=== PATIENT | female | born 1995 | race Caucasian/White ===

== ENCOUNTER 2017-09-17 22:59 | Inpatient (IN) | payer OTHER ==
[2017-09-18] MEDS: LR 1,000 ML IV ×4 (00:41→21:30)
[2017-09-18] MEDS: DIBUCAINE 1% OINTMENT 30GM TOP ×3 (00:41→21:00)
[2017-09-18] MEDS: ACETAMINOPHEN 500 MG TAB PO (03:20)
[2017-09-18] MEDS ORDERED: LR 1,000 ML IV ×2 (09:12)
[2017-09-18 10:25] LABS: HEMOGLOBIN 10.9 g/dl (12.0-15.5); MEAN CORPUSCULAR HEMOGLOBIN 29.5 pg (27.0-33.0); MEAN CORPUSCULAR HGB CONC 34.1 g/dl (32.0-36.5); MEAN CORPUSCULAR VOLUME 86.7 fl (80.0-96.0); PLATELET COUNT, AUTOMATED 155 10^3/uL (150-450); RED BLOOD COUNT 3.69 10^6/uL (4.00-5.40); RED CELL DISTRIBUTION WIDTH 12.6 % (11.5-14.5); WHITE BLOOD COUNT 10.5 10^3/uL (4.0-10.0)
[2017-09-18] MEDS: OXYTOCIN DRIP 30 UNITS in APPROPRIATE DILUENT 1 EA IV (10:46)
[2017-09-18 11:38] LABS: AMPHETAMINES URINE REFLEX NEGATIVE (NEGATIVE); BARBITURATES URINE REFLEX NEGATIVE (NEGATIVE); BENZODIAZEPINES URINE REFLEX NEGATIVE (NEGATIVE); CANNABINOIDS URINE REFLEX NEGATIVE (NEGATIVE); COCAINE METABOLITE URINE REFLE NEGATIVE (NEGATIVE); METHADONE URINE REFLEX NEGATIVE (NEGATIVE); PHENCYCLIDINE URINE REFLEX NEGATIVE (NEGATIVE)
[2017-09-18 11:47] LABS: OPIATES URINE REFLEX PENDING CONFIRMATION (NEGATIVE)
[2017-09-18] MEDS: LACTATED RINGER'S 1000 ML IV (18:09)
[2017-09-18] MEDS ORDERED: BICITRA 30ML SOLN UDC As Ordered (19:10)
[2017-09-18] MEDS ORDERED: ceFAZolin 2 GM/D5W 50 ML IV BAG (J0690 PER 500MG) As Ordered (19:10)
[2017-09-18] MEDS: BICITRA 30ML SOLN UDC PO (19:15)
[2017-09-18] MEDS ORDERED: MORPHINE PRES-FREE INJ 10 MG/10 ML VIAL (J2274) As Ordered (19:43)
[2017-09-18] MEDS ORDERED: ONDANSETRON 4MG/2ML VIAL (J2405) IV ×3 (20:00→21:30)
[2017-09-18] MEDS ORDERED: NALBUPHINE HCL 10 MG/ML AMP (J2300) IV (20:00)
[2017-09-18] MEDS ORDERED: NALOXONE INJ 0.4 MG/1 ML VIAL (J2310) IV ×2 (20:00)
[2017-09-18] MEDS ORDERED: OXYTOCIN INJ 10 UNITS/ML VIAL (J2590) As Ordered ×4 (20:16→21:05)
[2017-09-18] MEDS ORDERED: ONDANSETRON 4MG/2ML VIAL (J2405) As Ordered (20:25)
[2017-09-18] MEDS ORDERED: ePHEDrine SULFATE 25 MG/5 ML(5MG/ML) SYRINGE As Ordered (20:35)
[2017-09-18] MEDS ORDERED: fentaNYL 100 MCG/2 ML INJECTION (J3010) As Ordered ×2 (20:37→21:55)
[2017-09-18 20:50] LABS: CORD GAS ABE A -0.9; CORD GAS ABE V -0.7; CORD GAS HCO3 V 23.6 MEQ/L; CORD GAS O2 SAT A 26.9 %; CORD GAS O2 SAT V 60.5 %; CORD GAS PCO2 A 45.8 mmHg; CORD GAS PCO2 V 38.2 mmHg; CORD GAS PH A 7.355 UNITS; CORD GAS PH V 7.408 UNITS; CORD GAS PO2 A 15.6 mmHg; CORD GAS PO2 V 25.6 mmHg; CORD GAS SBC A 21.8 MEQ/L; CORD GAS SBC V 22.8 MEQ/L; CORD GAS TCO2 A 26.4 MEQ/L; CORD GAS TCO2 V 24.7 MEQ/L
[2017-09-18] MEDS ORDERED: MOM 30ML SUSPENSION UDC PO (21:15)
[2017-09-18] MEDS ORDERED: METHYLERGONOVINE MALEATE 0.2 MG TAB PO (21:15)
[2017-09-18] MEDS ORDERED: MEASLES,MUMPS,RUBELLA VACCINE INJ (MMR-II) (90707) SC (21:15)
[2017-09-18] MEDS ORDERED: KETOROLAC 30 MG/ML VIAL (J1885) As Ordered (21:27)
[2017-09-18] MEDS ORDERED: fentaNYL 100 MCG/2 ML INJECTION (J3010) IV (21:30)
[2017-09-18] MEDS ORDERED: MEPERIDINE INJ 25 MG/ML VIAL (J2175) IV (21:30)
[2017-09-18] MEDS ORDERED: PERCOCET 5MG/325MG TAB PO (21:30)
[2017-09-18] MEDS: KETOROLAC 30 MG/ML VIAL (J1885) IV (21:39)
[2017-09-18] MEDS: METOCLOPRAMIDE INJ 10MG/2ML VIAL (J2765) IV (23:39)
[2017-09-19] MEDS: PROMETHAZINE 25 MG TAB PO (02:42)
[2017-09-19] MEDS: KETOROLAC 30 MG/ML VIAL (J1885) IV ×3 (03:45→15:39)
[2017-09-19] MEDS: LR 1,000 ML IV ×3 (05:14→21:14)
[2017-09-19 06:51] LABS: HEMATOCRIT 31.3 % (36.0-47.0); HEMOGLOBIN 10.6 g/dl (12.0-15.5); MEAN CORPUSCULAR HEMOGLOBIN 29.4 pg (27.0-33.0); MEAN CORPUSCULAR HGB CONC 33.9 g/dl (32.0-36.5); MEAN CORPUSCULAR VOLUME 86.7 fl (80.0-96.0); PLATELET COUNT, AUTOMATED 145 10^3/uL (150-450); RED BLOOD COUNT 3.61 10^6/uL (4.00-5.40); RED CELL DISTRIBUTION WIDTH 12.7 % (11.5-14.5); WHITE BLOOD COUNT 11.1 10^3/uL (4.0-10.0)
[2017-09-19] MEDS: DIBUCAINE 1% OINTMENT 30GM TOP ×2 (10:18→21:01)
[2017-09-19] MEDS: PRENATAL VITAMINS CHEWABLE TABLET PO (10:19)
[2017-09-19 18:17] LABS: FETAL SCREEN PROF. 1 1
[2017-09-19] MEDS: RHOGAM 300 MCG (1500 IU) INJ (J2790) IM (18:30)
[2017-09-19] MEDS: DOCUSATE SODIUM 100 MG CAP PO (21:00)
[2017-09-19] MEDS: PERCOCET 5MG/325MG TAB PO (21:01)
[2017-09-19] MEDS: IBUPROFEN 800 MG TAB PO (23:30)
[2017-09-20] MEDS: PERCOCET 5MG/325MG TAB PO ×2 (04:25→11:28)
[2017-09-20] MEDS: IBUPROFEN 800 MG TAB PO (06:51)
[2017-09-20] MEDS: DIBUCAINE 1% OINTMENT 30GM TOP (09:36)
[2017-09-20] MEDS: PRENATAL VITAMINS CHEWABLE TABLET PO (09:36)
== END 2017-09-20 12:50 | disposition home or self-care (01) | DRG 766 ==
LOC: M LDO 22:59 → M LDI 09-18 08:56 → M OBS 09-18 23:29
PROVIDERS: Pediatrics; Student in an Organized Health Care Education/Training Program
PROC: 10D00Z1 Extraction of Products of Conception, Low, Open Approach (ICD-10-PCS; principal; 2017-09-18 20:02)
PROC: 3E033VJ Introduction of Other Hormone into Peripheral Vein, Percutaneous Approach (ICD-10-PCS; 2017-09-18 20:02)
DX: O76 Abnormality in fetal heart rate and rhythm complicating labor and delivery (principal); Z3A.39 39 weeks gestation of pregnancy; Z37.0 Single live birth

== ENCOUNTER 2017-09-21 15:46 | Emergency (ER) | payer OTHER ==
[2017-09-25] MEDS ORDERED: LIDOCAINE 2% INJ 100 MG/5 ML SDV (FOR ANES.) As Ordered (21:00)
[2017-09-25] MEDS ORDERED: PROPOFOL 200 MG/20 ML VIAL As Ordered ×2 (21:00→21:23)
[2017-09-25] MEDS ORDERED: fentaNYL 100 MCG/2 ML INJECTION (J3010) As Ordered ×2 (21:00→21:32)
[2017-09-25] MEDS ORDERED: MIDAZOLAM INJ 2 MG/2 ML VIAL (J2250) As Ordered (21:00)
== END 2017-09-22 01:13 | disposition home or self-care (01) ==
LOC: M ED 15:46
DX: K59.00 Constipation, unspecified (principal); Z79.899 Other long term (current) drug therapy
CPT/HCPCS: 74021

== ENCOUNTER 2017-09-25 13:48 | Observation (INO) | payer OTHER ==
[2017-09-25] MEDS: CLINDAMYCIN 900 MG in APPROPRIATE DILUENT 1 EA IV (14:33)
[2017-09-25] MEDS: HYDROmorphone HCL 1 MG/ML SYRINGE (J1170) IV (14:36)
[2017-09-25 14:47] LABS: HEMATOCRIT 32.5 % (36.0-47.0); HEMOGLOBIN 10.8 g/dl (12.0-15.5); MEAN CORPUSCULAR HEMOGLOBIN 29.1 pg (27.0-33.0); MEAN CORPUSCULAR HGB CONC 33.2 g/dl (32.0-36.5); MEAN CORPUSCULAR VOLUME 87.6 fl (80.0-96.0); PLATELET COUNT, AUTOMATED 212 10^3/uL (150-450); RED BLOOD COUNT 3.71 10^6/uL (4.00-5.40); RED CELL DISTRIBUTION WIDTH 12.8 % (11.5-14.5); WHITE BLOOD COUNT 15.3 10^3/uL (4.0-10.0)
[2017-09-25 14:50] LABS: LACTIC ACID SEPSIS PROTOCOL 0.9 MMOL/L (0.4-2.0)
[2017-09-25] MEDS ORDERED: ISOVUE-370 76% 100ML VIAL (Q9967) As Ordered (14:54)
[2017-09-25 14:57] LABS: ALBUMIN 2.4 GM/DL (3.2-5.2); ALBUMIN/GLOBULIN RATIO 0.52 (1.00-1.93); ALKALINE PHOSPHATASE 147 U/L (45-117); ALT/SGPT 18 U/L (12-78); ANION GAP 7 MEQ/L (8-16); AST/SGOT 14 U/L (7-37); BILIRUBIN,DIRECT 0.1 MG/DL (0.0-0.2); BILIRUBIN,TOTAL 0.4 MG/DL (0.2-1.0); BLOOD UREA NITROGEN 11 MG/DL (7-18); CALCIUM LEVEL 8.7 MG/DL (8.5-10.1); CARBON DIOXIDE LEVEL 25 MEQ/L (21-32); CHLORIDE LEVEL 103 MEQ/L (98-107); CREATININE FOR GFR 0.79 MG/DL (0.55-1.30); GLOMERULAR FILTRATION RATE > 60.0 (>60); GLUCOSE, FASTING 108 MG/DL (70-100); POTASSIUM SERUM 3.4 MEQ/L (3.5-5.1); SODIUM LEVEL 135 MEQ/L (136-145)
[2017-09-25 14:58] LABS: ADD MANUAL DIFFER YES; DIFF SLIDE NUMBER 120; POSITIVE MORPH POS FLAG
[2017-09-25 15:57] LABS: ATYPICAL LYMPH 1 % (0-5); BANDS 3 % (< 11); BASOPHILS 1 % (0-4); EOSINOPHILS 1 % (0-5); LYMPHOCYTES 9 % (16-52); MONOCYTES 3 % (0-8); NEUTROPHILS 82 % (35-75); PLATELET ESTIMATE NORMAL (NORMAL); TOXIC GRANULATION 2+
[2017-09-25 16:01] LABS: ERYTHROCYTE SEDIMENTATION RATE 77 mm/hr (0-20)
[2017-09-25] MEDS ORDERED: ONDANSETRON 4MG/2ML VIAL (J2405) IV ×2 (16:45→22:15)
[2017-09-25] MEDS ORDERED: ACETAMINOPHEN TAB 650MG DOSE (2X325MG) PO (16:45)
[2017-09-25] MEDS: MORPHINE 4 MG/ML 1ML VIAL/SYRINGE (J2270) IV (17:41)
[2017-09-25] MEDS: PIPERACILLIN/TAZOBACTAM SOD 3.375 GM in D5W MINI-BAG PLUS 50 ML IV ×2 (17:41→17:42)
[2017-09-25] MEDS: LR 1,000 ML IV ×2 (17:42→22:15)
[2017-09-25] MEDS: NORCO, ANEXSIA 5/325MG TABLET (HYDROcodone/ACETAMINOPHEN) PO (18:40)
[2017-09-25] MEDS ORDERED: LIDOCAINE 2% INJ 100 MG/5 ML SDV (FOR ANES.) (21:01)
[2017-09-25] MEDS ORDERED: PROPOFOL 200 MG/20 ML VIAL (21:01)
[2017-09-25] MEDS ORDERED: fentaNYL 100 MCG/2 ML INJECTION (J3010) (21:01)
[2017-09-25] MEDS ORDERED: MIDAZOLAM INJ 2 MG/2 ML VIAL (J2250) (21:01)
[2017-09-25] MEDS: BUPIVACAINE/EPIN 0.5% 30 ML VIAL As Ordered (21:04)
[2017-09-25] MEDS: fentaNYL 100 MCG/2 ML INJECTION (J3010) IV ×3 (22:03→23:11)
[2017-09-25] MEDS ORDERED: fentaNYL 100 MCG/2 ML INJECTION (J3010) As Ordered (22:04)
[2017-09-25] MEDS ORDERED: PERCOCET 5MG/325MG TAB As Ordered (22:04)
[2017-09-25] MEDS: PERCOCET 5MG/325MG TAB PO ×2 (22:15→23:11)
[2017-09-25] MEDS: CYCLOBENZAPRINE 10 MG TAB PO (23:03)
[2017-09-25] MEDS: SENOKOT S TAB PO (23:03)
[2017-09-26] MEDS: MORPHINE 4 MG/ML 1ML VIAL/SYRINGE (J2270) IV (04:05)
[2017-09-26] MEDS: PIPERACILLIN/TAZOBACTAM SOD 3.375 GM in D5W MINI-BAG PLUS 50 ML IV ×4 (05:46→23:56)
[2017-09-26] MEDS: LR 1,000 ML IV ×2 (05:46→08:45)
[2017-09-26 05:57] LABS: HEMATOCRIT 26.5 % (36.0-47.0); HEMOGLOBIN 8.9 g/dl (12.0-15.5); MEAN CORPUSCULAR HGB CONC 33.6 g/dl (32.0-36.5); MEAN CORPUSCULAR VOLUME 86.3 fl (80.0-96.0); PLATELET COUNT, AUTOMATED 194 10^3/uL (150-450); RED BLOOD COUNT 3.07 10^6/uL (4.00-5.40); RED CELL DISTRIBUTION WIDTH 13.1 % (11.5-14.5); WHITE BLOOD COUNT 16.4 10^3/uL (4.0-10.0)
[2017-09-26 06:20] LABS: ANION GAP 8 MEQ/L (8-16); BLOOD UREA NITROGEN 7 MG/DL (7-18); CARBON DIOXIDE LEVEL 24 MEQ/L (21-32); CHLORIDE LEVEL 109 MEQ/L (98-107); CREATININE FOR GFR 0.77 MG/DL (0.55-1.30); GLOMERULAR FILTRATION RATE > 60.0 (>60); GLUCOSE, FASTING 132 MG/DL (70-100); POTASSIUM SERUM 3.2 MEQ/L (3.5-5.1); SODIUM LEVEL 141 MEQ/L (136-145)
[2017-09-26] MEDS: CYCLOBENZAPRINE 10 MG TAB PO ×3 (08:36→20:43)
[2017-09-26] MEDS: NORCO, ANEXSIA 5/325MG TABLET (HYDROcodone/ACETAMINOPHEN) PO ×3 (08:38→23:57)
[2017-09-26] MEDS: SENOKOT S TAB PO ×2 (08:38→20:43)
[2017-09-26] MEDS: POTASSIUM CHLORIDE 10 MEQ SR TABLET PO (12:19)
[2017-09-26] MEDS: KETOROLAC 30 MG/ML VIAL (J1885) IV ×2 (13:56→20:44)
[2017-09-27] MEDS: NORCO, ANEXSIA 5/325MG TABLET (HYDROcodone/ACETAMINOPHEN) PO ×3 (05:49→20:25)
[2017-09-27] MEDS: PIPERACILLIN/TAZOBACTAM SOD 3.375 GM in D5W MINI-BAG PLUS 50 ML IV ×4 (05:49→23:09)
[2017-09-27 06:22] LABS: HEMATOCRIT 26.1 % (36.0-47.0); HEMOGLOBIN 8.5 g/dl (12.0-15.5); MEAN CORPUSCULAR HEMOGLOBIN 28.6 pg (27.0-33.0); MEAN CORPUSCULAR HGB CONC 32.6 g/dl (32.0-36.5); MEAN CORPUSCULAR VOLUME 87.9 fl (80.0-96.0); PLATELET COUNT, AUTOMATED 172 10^3/uL (150-450); RED BLOOD COUNT 2.97 10^6/uL (4.00-5.40); RED CELL DISTRIBUTION WIDTH 13.2 % (11.5-14.5); WHITE BLOOD COUNT 9.6 10^3/uL (4.0-10.0)
[2017-09-27 06:40] LABS: ANION GAP 7 MEQ/L (8-16); BLOOD UREA NITROGEN 8 MG/DL (7-18); CALCIUM LEVEL 8.4 MG/DL (8.5-10.1); CARBON DIOXIDE LEVEL 26 MEQ/L (21-32); CHLORIDE LEVEL 111 MEQ/L (98-107); CREATININE FOR GFR 0.79 MG/DL (0.55-1.30); GLOMERULAR FILTRATION RATE > 60.0 (>60); GLUCOSE, FASTING 89 MG/DL (70-100); POTASSIUM SERUM 3.8 MEQ/L (3.5-5.1); SODIUM LEVEL 144 MEQ/L (136-145)
[2017-09-27] MEDS: CYCLOBENZAPRINE 10 MG TAB PO ×3 (10:02→20:24)
[2017-09-27] MEDS: SENOKOT S TAB PO ×2 (10:03→20:24)
[2017-09-27] MEDS: KETOROLAC 30 MG/ML VIAL (J1885) IV (10:05)
[2017-09-27] MEDS: MOM 30ML SUSPENSION UDC PO (11:17)
[2017-09-27] MEDS: BISACODYL 10 MG SUPP PR (14:31)
[2017-09-27] MEDS: MORPHINE 4 MG/ML 1ML VIAL/SYRINGE (J2270) IV ×2 (14:50→17:38)
[2017-09-28] MEDS: NORCO, ANEXSIA 5/325MG TABLET (HYDROcodone/ACETAMINOPHEN) PO ×2 (03:29→09:34)
[2017-09-28] MEDS: MORPHINE 4 MG/ML 1ML VIAL/SYRINGE (J2270) IV (04:33)
[2017-09-28] MEDS: PIPERACILLIN/TAZOBACTAM SOD 3.375 GM in D5W MINI-BAG PLUS 50 ML IV (05:12)
[2017-09-28 06:28] LABS: HEMATOCRIT 27.1 % (36.0-47.0); HEMOGLOBIN 8.7 g/dl (12.0-15.5); MEAN CORPUSCULAR HEMOGLOBIN 28.5 pg (27.0-33.0); MEAN CORPUSCULAR HGB CONC 32.1 g/dl (32.0-36.5); MEAN CORPUSCULAR VOLUME 88.9 fl (80.0-96.0); PLATELET COUNT, AUTOMATED 190 10^3/uL (150-450); RED BLOOD COUNT 3.05 10^6/uL (4.00-5.40); WHITE BLOOD COUNT 7.4 10^3/uL (4.0-10.0)
[2017-09-28 06:45] LABS: ANION GAP 7 MEQ/L (8-16); BLOOD UREA NITROGEN 6 MG/DL (7-18); CALCIUM LEVEL 8.6 MG/DL (8.5-10.1); CARBON DIOXIDE LEVEL 27 MEQ/L (21-32); CHLORIDE LEVEL 109 MEQ/L (98-107); CREATININE FOR GFR 0.85 MG/DL (0.55-1.30); GLOMERULAR FILTRATION RATE > 60.0 (>60); GLUCOSE, FASTING 95 MG/DL (70-100); SODIUM LEVEL 143 MEQ/L (136-145)
[2017-09-28] MEDS ORDERED: IBUPROFEN 800 MG TAB PO (08:30)
[2017-09-28] MEDS: CYCLOBENZAPRINE 10 MG TAB PO (09:30)
[2017-09-28] MEDS: SENOKOT S TAB PO (09:30)
[2017-09-28] MEDS: LevoFLOXacin 750 MG TABLET PO (09:30)
== END 2017-09-28 13:40 | disposition home or self-care (01) ==
LOC: M ED 13:48 → M ED INP 16:38 → M MSPAV 18:27
DX: O90.89 Other complications of the puerperium, not elsewhere classified (principal); K61.1 Rectal abscess; D72.829 Elevated white blood cell count, unspecified; J45.909 Unspecified asthma, uncomplicated
CPT/HCPCS: 46040